=== PATIENT | female | born 1950 | race Caucasian/White ===

== ENCOUNTER 2022-02-05 00:58 | Emergency (ER) | payer OTHER ==
[~2022-02-05 00:58] MED LIST: ATENOLOL25 MG PO; DIGITEK125 MCG PO; ELIQUIS5 MG PO; FLEXERIL10 MG PO; ZOCOR40 MG PO
[2022-02-05 01:31] LABS: BASOPHIL 0.2 % (0-2); EOSINOPHIL 1.3 % (0-7); HCT 38.1 % (37.0-47.0); HGB 12.9 g/dl (12.5-16.0); LYMPHOCYTE 38.2 % (15-48); MCH 31.4 pg (25.0-31.0); MCHC 33.9 g/dL (32.0-36.0); MCV 92.7 fL (78.0-100.0); MPV 9.4 fL (6.0-9.5); NRBC 0; PLT 154 K/uL (150-400); RBC 4.11 M/uL (4.20-5.40); RDW 13.2 % (11.5-14.0); WBC 6.3 K/uL (4.0-10.5)
[2022-02-05 01:48] LABS: PROTHROMBIN TIME 12.6 SECONDS (11.8-13.4); PTT 31.1 SECONDS (24.4-34.7)
[2022-02-05 01:55] LABS: ALBUMIN 3.7 g/dL (3.4-5.0); BILIRUBIN - TOTAL 0.3 mg/dL (0.2-1.0); BUN/CREAT RATIO (CALC) 16.2 RATIO; CREATININE 0.74 mg/dL (0.51-0.95); GLOBULIN (CALCULATION) 2.7 g/dL; POTASSIUM 3.4 mmol/L (3.5-5.1); TOTAL PROTEIN 6.4 g/dL (6.4-8.2)
[2022-02-05] MEDS ORDERED: PERCOCET 5-3251 EACH PO (04:24)
[2022-02-05] MEDS ORDERED: ONDANSETRON ODT4 MG PO (04:24)
[2022-02-05 04:53] LABS: BILIRUBIN NEGATIVE (NEGATIVE); BLOOD 3+ Ery/uL (NEGATIVE); CLARITY CLOUDY (CLEAR); COLOR BROWN (YELLOW); GLUCOSE (U) NORMAL (NORMAL); LEUKOCYTES NEGATIVE Leu/uL (NEGATIVE); NITRITE NEGATIVE (NEGATIVE); PROTEIN 2+ mg/dL (NEGATIVE); SPECIFIC GRAVITY >=1.030 (1.001-1.030); UROBILINOGEN 0.2 mg/dL (0.2-1.0)
[2022-02-05 04:55] LABS: BACTERIA 2+; URINARY RBC TNTC
[2022-02-05] MEDS ORDERED: CIPRO500 MG PO (04:56)
== END 2022-02-05 05:15 | disposition home or self-care (01) ==
LOC: FER 00:58
PROVIDERS: Internal Medicine
DX: N13.2 Hydronephrosis with renal and ureteral calculous obstruction (principal); I10 Essential (primary) hypertension; E78.5 Hyperlipidemia, unspecified; I48.91 Unspecified atrial fibrillation; Z79.01 Long term (current) use of anticoagulants; Z79.899 Other long term (current) drug therapy
CPT/HCPCS: 36415; 80053; 81001; 84145; 85025; 85610; 85730; 87088; J1170; J2405; J7030